=== PATIENT | female | born 1990 | race Caucasian/White ===

== ENCOUNTER 2025-06-03 17:35 | Emergency (ER) | payer BC, SELFPAY ==
--- NOTE | 2025-06-03 17:42 | ED_ITS ---
HPI - Wound/Laceration General Chief Complaint: Unspecified Stated Complaint: SUTURE REMOVAL Time Seen by Provider: 06/03/25 17:55 Source: patient, RN notes reviewed and old records reviewed Mode of arrival: ambulatory Limitations: no limitations History of Present Illness HPI narrative: 34-year-old female presents to the [facility] to have a suture removed that is in her right thumb. States that Monday 8 days ago she was seen and [facility] after she cut herself with a knife. Has full range of motion, sensation intact. Onset (ago): day(s) (8) Related Data Home Medications ?Medication ?Instructions ?Recorded ?Confirmed ?Last Taken ?Type fluoxetine 20 mg capsule mg 06/03/25 Unknown History Allergies Allergy/AdvReac Type Severity Reaction Status Date / Time No Known Allergies Allergy Verified 06/03/25 17:58 Review of Systems Review of Systems: All systems reviewed & are unremarkable except as noted in HPI and below Constitutional: Constitutional: Reports no additional constitutional complaints Respiratory: Respiratory: Reports no additional respiratory complaints, Denies chest congestion, Denies cough and Denies dyspnea Musculoskeletal: Musculoskeletal: Reports no additional musculoskeletal complaints Integumentary/Breasts: Skin/Breast: Reports as per HPI PMFSH Comments At the time of my signature, I reviewed and agree with the nursing past medical, surgical, social, and family history. There is no relevant family history pertinent to the patient complaint. Exam Const: General: cooperative, healthy appearing, comfortable, no acute distress, well developed, alert and well nourished Nutritional Appearance: well nourished Orientation/consciousness: patient oriented x3 Limitations: no limitations HENMT: Head: normal to inspection Eyes: General: appearance normal, both eyes and all related structures Alignment and Position: alignment normal Neck: Neck: normal visual inspection, full ROM, no lymphadenopathy and no meningeal signs Chest: Chest palpation & inspection: normal inspection of the chest Resp: Effort & Inspection: normal respiratory effort and able to speak in complete sentences Cardio: Rate: regular rate Skin: General skin exam: normal color and no rashes or lesions noted Other: One suture on the right thumb at the IP joint lateral aspect. well approximated, well healed. Area cleaned with alcohol, suture removed without issue. Neuro: General: patient oriented x3, gait normal, moves all extremities and no meningeal signs Cognition (Neuro): normal cognition Speech: normal speech Gait exam (Neuro): Normal gait present Extrem: General: normal to inspection, full ROM, capillary refill normal and normal gait Psych: Appearance: grossly normal and well kempt Mental Status: mental status grossly normal Speech and movement: Normal speech and movement present and Clear speech present Affect: normal affect Attitude: cooperative Course Course Level of Care: Express Care Visit Vital Signs Vital signs: Vital Signs Temperature 97.7 F 06/03/25 17:49 Pulse Rate 75 06/03/25 17:49 Respiratory Rate 16 06/03/25 17:49 Blood Pressure 142/93 H 06/03/25 17:49 Pulse Oximetry 100 06/03/25 17:49 Temperature 97.7 F 06/03/25 17:49 Pulse Rate 75 06/03/25 17:49 Respiratory Rate 16 06/03/25 17:49 Blood Pressure 142/93 H 06/03/25 17:49 Pulse Oximetry 100 06/03/25 17:49 reviewed MDM MDM Narrative Medical decision making narrative: Patient presents for suture removal. Placed 8 days ago. Well-healed. No signs of infection, cleaned and approximated. Patient suture removed. patient tolerated well Discharge instructions reviewed with patient, as well as provided in writing per nursing staff. The instructions also include specific and strict return/GO TO THE ER as well as f/u information. All questions have been answered, and the patient deny any further questions with discharge and discharge plan. Some parts of this dictation were generated by voice recognition software and may contain typographical and/or grammatical inaccuracies. Differential Diagnosis Differential Diagnosis: laceration, abrasion, ulceration Discharge Plan Discharge Clinical Impression: Encounter for removal of sutures Patient Disposition: Home Condition: Stable Instructions: Antibiotic Form, Acute Wounds (DC) Additional Instructions: keep area clean and dry. Wash with warm soapy water twice daily. Follow-up with primary care provider Patient Language: Albanian Prescriptions: No Action fluoxetine 20 mg capsule Follow-up/Referrals: PHYSICIAN,FIXED ROUTE OPERATOR [Primary Care Provider, Internal Medicine] Time of Disposition: 18:03
[2025-06-03 17:49] VITALS: BP 142/93; PULSE 75; RESP 16; TEMP 36.5; O2SAT 100
== END 2025-06-03 18:05 | disposition home or self-care (01) ==
PROVIDERS: Emergency Provider Nurse Practitioner
DX: S61.011D Laceration without foreign body of right thumb without damage to nail, subsequent encounter (principal); W26.0XXD Contact with knife, subsequent encounter
CPT/HCPCS: 99211; G0463